=== PATIENT | female | born 1965 | race Caucasian/White ===

== ENCOUNTER → 2024-06-09 | Day surgery (SDC) | payer BC ==
[~2024-06-09] MED LIST: LIDOCAINE HCL 1% 10 MG/ML 10ML VIAL ONE; SODIUM BICARBONATE 4% 2.4MEQ/5ML VIAL IV ONE
== END | disposition home or self-care (01) ==
LOC: RAD 08:11
PROVIDERS: ATTEND Surgery
DX: N63.21 Unspecified lump in the left breast, upper outer quadrant (principal); Z79.899 Other long term (current) drug therapy; Z98.890 Other specified postprocedural states
CPT/HCPCS: 19285; J2003; J3490; A4648

== ENCOUNTER → 2024-06-15 | Day surgery (SDC) | payer BC ==
[~2024-06-15] VITALS: Ht 162.6 cm; Wt 83.9 kg
[~2024-06-15] MED LIST changes: +BUPIVACAINE HCL/PF 0.5% (5MG/ML) 10ML ONE; +CLINDAMYCIN 900MG PREMIX 50 ML IV ONE; +DEXAMETHASONE 4MG/ML 1ML VIAL ONE; +FENTANYL CITRATE/PF 50MCG/ML 5ML VIAL ONE; +HYDROMORPHONE HCL/PF 1MG/ML INJ IV PRN; +LABETALOL 5MG/ML 4ML INJ IV PRN; -LIDOCAINE HCL 1% 10 MG/ML 10ML VIAL ONE; +MEPERIDINE HCL/PF 25MG/ML CPJ IV PRN; +MIDAZOLAM HCL 2 MG/2 ML VIAL ONE; +ONDANSETRON HCL 4MG/2ML INJ IV PRN; +ONDANSETRON HCL 4MG/2ML INJ ONE; +PROPOFOL 200MG/20ML VIAL IV ONE; -SODIUM BICARBONATE 4% 2.4MEQ/5ML VIAL IV ONE
[2024-06-15 09:07] LABS: BASOPHILS % 1.3 % (0.0-2.0); EOSINOPHILS % 1.3 % (0.0-5.0); HEMOGLOBIN. 15.3 g/dL (12.0-16.0); LYMPHOCYTES % 47.9 % (20.0-50.0); MEAN CORPUSCULAR HEMOGLOBIN 29.4 pg (28.0-32.0); MEAN CORPUSCULAR HGB CONC 33.2 g/dL (31.0-37.0); MEAN CORPUSCULAR VOLUME 88.6 fL (81.0-99.0); MEAN PLATELET VOLUME 10.6 fl (7.4-10.4); MONOCYTES % 7.5 % (2.0-8.0); PLATELET 158 x1000/uL (130-400); RED BLOOD CELL COUNT 5.19 mill/uL (4.2-5.4); WHITE BLOOD COUNT 3.4 x1000/uL (4.5-11.0)
[2024-06-15 09:08] LABS: CHLORIDE 106 mEq/L (98-107); SODIUM 140 mEq/L (136-145)
[2024-06-15 09:09] LABS: CALCIUM 9.9 mg/dL (8.7-10.4); CARBON DIOXIDE 26 mEq/L (21-32)
[2024-06-15 09:14] LABS: CREATININE 0.8 mg/dL (0.6-1.0); GLUCOSE 104 mg/dL (70-105); UREA NITROGEN BLOOD 12 mg/dL (9-23)
[2024-06-15] MEDS: LACTATED RINGERS 1,000 ML IV SCH (09:28)
== END | disposition home or self-care (01) ==
LOC: OR 08:31
PROVIDERS: ATTEND Surgery
DX: R92.8 Other abnormal and inconclusive findings on diagnostic imaging of breast (principal); Z79.899 Other long term (current) drug therapy; Z98.890 Other specified postprocedural states; Z88.0 Allergy status to penicillin; Z88.5 Allergy status to narcotic agent; Z88.8 Allergy status to other drugs, medicaments and biological substances
CPT/HCPCS: 19125; 80048; 85025; 36415; 88305; 76098; J3010; J0665; J3490; J1100; J2250; J2405; J2704